=== PATIENT | male | born 1965 | race African-American/Black ===

== ENCOUNTER 2020-04-10 07:18 | Outpatient (REF) | payer MEDICARE, MEDICAID, SELFPAY | END 2020-04-10 07:19 | disposition home or self-care (01) | LOC: HO.MMNH2L 07:18 | PROVIDERS: Visit Provider Family Medicine | DX: Z20.828 Contact with and (suspected) exposure to other viral communicable diseases (principal) | CPT/HCPCS: 87635 ==

== ENCOUNTER 2020-04-17 18:57 | Outpatient (REF) | payer MEDICARE, MEDICAID, SELFPAY | END 2020-04-17 18:58 | disposition home or self-care (01) | LOC: HO.LNP 18:57 | PROVIDERS: Visit Provider Family Medicine | DX: Z20.828 Contact with and (suspected) exposure to other viral communicable diseases (principal) | CPT/HCPCS: 87635 ==

== ENCOUNTER 2020-04-23 06:41 | Outpatient (REF) | payer SELFPAY | END 2020-04-23 06:42 | disposition home or self-care (01) | LOC: HO.MMNH2L 06:41 | PROVIDERS: Visit Provider Family Medicine | DX: Z20.828 Contact with and (suspected) exposure to other viral communicable diseases (principal) | CPT/HCPCS: 87635 ==

== ENCOUNTER 2020-05-01 07:11 | Outpatient (REF) | payer SELFPAY | END 2020-05-01 07:12 | disposition home or self-care (01) | LOC: HO.MMNH2L 07:11 | PROVIDERS: Visit Provider Family Medicine | DX: Z20.828 Contact with and (suspected) exposure to other viral communicable diseases (principal) | CPT/HCPCS: U0003 ==

== ENCOUNTER 2020-05-04 | Outpatient (REF) | payer SELFPAY | END 2020-05-04 00:01 | LOC: HO.MMNH2L | PROVIDERS: Visit Provider Family Medicine | DX: Z20.828 Contact with and (suspected) exposure to other viral communicable diseases (principal) | CPT/HCPCS: U0003 ==

== ENCOUNTER 2020-06-29 06:43 | Outpatient (REF) | payer MEDICARE, MEDICAID, SELFPAY ==
[2020-06-29 07:07] LABS: Hematocrit 35.2 % (42-52); Hemoglobin 10.7 g/dl (14.0-18.0); Mean Corpuscular HGB Conc 30.4 g/dl (31.0-36.0); Mean Corpuscular Hemoglobin 30.2 pg (27.0-33.0); Mean Corpuscular Volume 99.4 fL (80-98); Mean Platelet Volume 9.4 fL (9.4-12.4); Platelet Count 269 X10*3/uL (160-400); Red Blood Count 3.54 X10*6/uL (4.60-5.80); Red Cell Distribution Width 15.3 % (11.0-16.0); White Blood Count 6.1 X10*3/uL (4.8-10.8)
[2020-06-29 07:39] LABS: Erythrocyte Sedimentation Rate 69 MM/HR (0-15)
[2020-06-29 07:54] LABS: Anion Gap 20 (12-20); Blood Urea Nitrogen 49 mg/dL (9-16); C Reactive Protein 1.86 mg/dL (< or = 0.50); Calcium 7.1 mg/dL (8.4-10.2); Carbon Dioxide 24 mmol/L (22-29); Chloride 99 mmol/L (96-108); Estimated Glomerular Filt Rate 8; Glucose Random 67 mg/dL (60-115); Sodium 137 mmol/L (135-145)
== END 2020-06-29 06:44 | disposition home or self-care (01) ==
LOC: HO.MMNH3L 06:43
PROVIDERS: Visit Provider Family Medicine
DX: I63.439 Cerebral infarction due to embolism of unspecified posterior cerebral artery (principal); E11.8 Type 2 diabetes mellitus with unspecified complications
CPT/HCPCS: 36415; 80048; 85027; 85652; 86140

== ENCOUNTER 2020-07-06 | Outpatient (REF) | payer MEDICARE, MEDICAID, SELFPAY ==
[2020-07-06 07:57] LABS: Hemoglobin 11.2 g/dl (14.0-18.0); Mean Corpuscular HGB Conc 30.3 g/dl (31.0-36.0); Mean Corpuscular Hemoglobin 29.3 pg (27.0-33.0); Mean Corpuscular Volume 96.9 fL (80-98); Mean Platelet Volume 9.6 fL (9.4-12.4); Platelet Count 264 X10*3/uL (160-400); Red Blood Count 3.82 X10*6/uL (4.60-5.80); Red Cell Distribution Width 14.6 % (11.0-16.0); White Blood Count 5.7 X10*3/uL (4.8-10.8)
[2020-07-06 10:03] LABS: Anion Gap 20 (12-20); Blood Urea Nitrogen 57 mg/dL (9-16); Calcium 7.7 mg/dL (8.4-10.2); Carbon Dioxide 22 mmol/L (22-29); Chloride 98 mmol/L (96-108); Estimated Glomerular Filt Rate 7; Glucose Random 62 mg/dL (60-115); Potassium 5.5 mmol/l (3.3-5.1); Sodium 134 mmol/L (135-145)
== END 2020-07-06 00:01 ==
LOC: HO.MMNH3L
PROVIDERS: Visit Provider Family Medicine
DX: E11.8 Type 2 diabetes mellitus with unspecified complications (principal); I63.439 Cerebral infarction due to embolism of unspecified posterior cerebral artery; Z99.2 Dependence on renal dialysis
CPT/HCPCS: 36415; 80048; 85027

== ENCOUNTER 2020-07-13 | Outpatient (REF) | payer MEDICARE, MEDICAID, SELFPAY ==
[2020-07-13 07:43] LABS: Hematocrit 37.1 % (42-52); Hemoglobin 11.6 g/dl (14.0-18.0); Mean Corpuscular HGB Conc 31.3 g/dl (31.0-36.0); Mean Corpuscular Hemoglobin 29.9 pg (27.0-33.0); Mean Corpuscular Volume 95.6 fL (80-98); Mean Platelet Volume 9.6 fL (9.4-12.4); Platelet Count 260 X10*3/uL (160-400); Red Blood Count 3.88 X10*6/uL (4.60-5.80); Red Cell Distribution Width 14.6 % (11.0-16.0); White Blood Count 6.1 X10*3/uL (4.8-10.8)
[2020-07-13 08:29] LABS: Anion Gap 21 (12-20); Blood Urea Nitrogen 60 mg/dL (9-16); C Reactive Protein 0.48 mg/dL (< or = 0.50); Calcium 7.7 mg/dL (8.4-10.2); Carbon Dioxide 19 mmol/L (22-29); Chloride 99 mmol/L (96-108); Estimated Glomerular Filt Rate 8; Glucose Random 66 mg/dL (60-115); Potassium 5.1 mmol/l (3.3-5.1); Sodium 134 mmol/L (135-145)
[2020-07-13 09:12] LABS: Erythrocyte Sedimentation Rate 38 MM/HR (0-15)
== END 2020-07-13 00:01 ==
LOC: HO.MMNH3L
PROVIDERS: Visit Provider Family Medicine
DX: E11.8 Type 2 diabetes mellitus with unspecified complications (principal); I63.439 Cerebral infarction due to embolism of unspecified posterior cerebral artery; Z99.2 Dependence on renal dialysis
CPT/HCPCS: 36415; 80048; 85027; 85652; 86140

== ENCOUNTER 2020-07-13 22:00 | Outpatient (REF) | payer MEDICARE, MEDICAID, SELFPAY ==
[2020-07-14 07:51] LABS: Glucose Urine UA 100 MG/DL (NEG); Leukocyte Esterase Urine NEG (NEG); Nitrite Urine NEG (NEG); Urine Blood TRACE (NEG); Urine Ketones NEG (NEG); Urine Protein 1+ MG/DL (NEG-TRACE)
[2020-07-14 07:53] LABS: Appearance Urine CLEAR; Color Urine YELLOW
[2020-07-14 08:11] LABS: RBC Urine 0-2 /HPF (0); WBC Urine 0 /HPF (0-4)
== END 2020-07-13 22:01 | disposition home or self-care (01) ==
LOC: HO.MMNH3L 22:00
PROVIDERS: Visit Provider Family Medicine
DX: R30.0 Dysuria (principal); N18.6 End stage renal disease
CPT/HCPCS: 81001; 87086

== ENCOUNTER 2020-07-20 | Outpatient (REF) | payer MEDICARE, MEDICAID, SELFPAY ==
[2020-07-20 07:44] LABS: Hematocrit 32.5 % (42-52); Hemoglobin 10.3 g/dl (14.0-18.0); Mean Corpuscular HGB Conc 31.7 g/dl (31.0-36.0); Mean Corpuscular Hemoglobin 30.1 pg (27.0-33.0); Mean Platelet Volume 9.5 fL (9.4-12.4); Platelet Count 242 X10*3/uL (160-400); Red Blood Count 3.42 X10*6/uL (4.60-5.80); Red Cell Distribution Width 14.9 % (11.0-16.0); White Blood Count 7.1 X10*3/uL (4.8-10.8)
[2020-07-20 07:54] LABS: C Reactive Protein 3.31 mg/dL (< or = 0.50)
[2020-07-20 08:32] LABS: Anion Gap 21 (12-20); Blood Urea Nitrogen 66 mg/dL (9-16); Calcium 7.7 mg/dL (8.4-10.2); Carbon Dioxide 21 mmol/L (22-29); Chloride 95 mmol/L (96-108); Estimated Glomerular Filt Rate 7; Glucose Random 89 mg/dL (60-115); Sodium 132 mmol/L (135-145)
[2020-07-20 09:11] LABS: Erythrocyte Sedimentation Rate 65 MM/HR (0-15)
== END 2020-07-20 00:01 | disposition home or self-care (01) ==
LOC: HO.MMNH3L
PROVIDERS: Visit Provider Family Medicine
DX: E11.8 Type 2 diabetes mellitus with unspecified complications (principal); I63.439 Cerebral infarction due to embolism of unspecified posterior cerebral artery; Z99.2 Dependence on renal dialysis
CPT/HCPCS: 36415; 80048; 85027; 85652; 86140

== ENCOUNTER 2020-07-27 | Outpatient (REF) | payer MEDICARE, MEDICAID, SELFPAY ==
[2020-07-27 07:30] LABS: Hematocrit 29.9 % (42-52); Hemoglobin 9.4 g/dl (14.0-18.0); Mean Corpuscular HGB Conc 31.4 g/dl (31.0-36.0); Mean Corpuscular Hemoglobin 30.3 pg (27.0-33.0); Mean Corpuscular Volume 96.5 fL (80-98); Mean Platelet Volume 9.4 fL (9.4-12.4); Platelet Count 204 X10*3/uL (160-400); Red Cell Distribution Width 14.6 % (11.0-16.0); White Blood Count 7.2 X10*3/uL (4.8-10.8)
[2020-07-27 08:40] LABS: Erythrocyte Sedimentation Rate 50 MM/HR (0-15)
[2020-07-27 09:26] LABS: Alanine Aminotransferase 18 U/L (0-40); Alkaline Phosphatase 115 U/L (39-117); Anion Gap 20 (12-20); Aspartate Amino Transferase 32 U/L (5-37); Bilirubin Total 0.3 mg/dL (0.0-1.0); Blood Urea Nitrogen 50 mg/dL (9-16); C Reactive Protein 2.34 mg/dL (< or = 0.50); Carbon Dioxide 22 mmol/L (22-29); Chloride 100 mmol/L (96-108); Estimated Glomerular Filt Rate 9; Glucose Random 70 mg/dL (60-115); Potassium 5.5 mmol/l (3.3-5.1); Sodium 136 mmol/L (135-145); Total Protein 6.2 g/dL (6.5-8.0)
== END 2020-07-27 00:01 | disposition home or self-care (01) ==
LOC: HO.MMNH3L
PROVIDERS: Visit Provider Family Medicine
DX: E11.8 Type 2 diabetes mellitus with unspecified complications (principal); I63.439 Cerebral infarction due to embolism of unspecified posterior cerebral artery; Z99.2 Dependence on renal dialysis
CPT/HCPCS: 36415; 80053; 85027; 85652; 86140

== ENCOUNTER 2020-08-03 13:05 | Outpatient (REF) | payer MEDICARE, MEDICAID, SELFPAY ==
[2020-08-03 07:54] LABS: Hematocrit 28.8 % (42-52); Mean Corpuscular HGB Conc 31.3 g/dl (31.0-36.0); Mean Corpuscular Hemoglobin 29.9 pg (27.0-33.0); Mean Corpuscular Volume 95.7 fL (80-98); Mean Platelet Volume 9.4 fL (9.4-12.4); Platelet Count 205 X10*3/uL (160-400); Red Blood Count 3.01 X10*6/uL (4.60-5.80); Red Cell Distribution Width 14.3 % (11.0-16.0); White Blood Count 7.1 X10*3/uL (4.8-10.8)
[2020-08-03 08:24] LABS: Anion Gap 14 (12-20); Blood Urea Nitrogen 40 mg/dL (9-16); C Reactive Protein 2.06 mg/dL (< or = 0.50); Calcium 7.7 mg/dL (8.4-10.2); Carbon Dioxide 26 mmol/L (22-29); Chloride 101 mmol/L (96-108); Glucose Random 60 mg/dL (60-115); Potassium 4.8 mmol/L (3.3-5.1); Sodium 136 mmol/L (135-145)
[2020-08-03 09:06] LABS: Erythrocyte Sedimentation Rate 50 MM/HR (0-15)
[2020-08-03 09:39] LABS: Estimated Glomerular Filt Rate 8
== END 2020-08-03 13:06 | disposition home or self-care (01) ==
LOC: HO.MMNH3L 13:05
PROVIDERS: Visit Provider Family Medicine
DX: E11.8 Type 2 diabetes mellitus with unspecified complications (principal); I63.439 Cerebral infarction due to embolism of unspecified posterior cerebral artery; Z99.2 Dependence on renal dialysis
CPT/HCPCS: 36415; 80048; 85027; 85652; 86140

== ENCOUNTER 2020-08-10 10:41 | Outpatient (REF) | payer MEDICARE, MEDICAID, SELFPAY ==
[2020-08-10 07:56] LABS: Hematocrit 29.5 % (42-52); Mean Corpuscular HGB Conc 30.5 g/dl (31.0-36.0); Mean Corpuscular Hemoglobin 29.9 pg (27.0-33.0); Mean Platelet Volume 9.7 fL (9.4-12.4); Platelet Count 222 X10*3/uL (160-400); Red Blood Count 3.01 X10*6/uL (4.60-5.80); Red Cell Distribution Width 14.6 % (11.0-16.0); White Blood Count 5.3 X10*3/uL (4.8-10.8)
[2020-08-10 08:39] LABS: Anion Gap 16 (12-20); C Reactive Protein 1.77 mg/dL (< or = 0.50); Calcium 8.2 mg/dL (8.4-10.2); Carbon Dioxide 27 mmol/L (22-29); Chloride 101 mmol/L (96-108); Glucose Random 89 mg/dL (60-115); Potassium 4.6 mmol/L (3.3-5.1); Sodium 139 mmol/L (135-145)
[2020-08-10 08:41] LABS: Blood Urea Nitrogen 55 mg/dL (9-16); Estimated Glomerular Filt Rate 7
[2020-08-10 09:37] LABS: Erythrocyte Sedimentation Rate 60 MM/HR (0-15)
== END 2020-08-10 10:42 | disposition home or self-care (01) ==
LOC: HO.MMNH3L 10:41
PROVIDERS: Visit Provider Family Medicine
DX: E11.8 Type 2 diabetes mellitus with unspecified complications (principal); Z99.2 Dependence on renal dialysis; I63.439 Cerebral infarction due to embolism of unspecified posterior cerebral artery
CPT/HCPCS: 36415; 80048; 85027; 85652; 86140

== ENCOUNTER 2020-08-17 10:30 | Outpatient (REF) | payer MEDICARE, MEDICAID, SELFPAY ==
[2020-08-17 06:39] LABS: MANUAL DIFF FLAG NO
[2020-08-17 07:06] LABS: Basophils Percent Auto 0.4 % (0-2); Eosinophils Absolute Auto 0.2 X10*3/uL (0.0-0.4); Eosinophils Percent Auto 3.5 % (0-4); Hematocrit 33.2 % (42-52); Hemoglobin 10.3 g/dl (14.0-18.0); Imm Gran Abs Auto 0.02 X10*3/uL (0.00-0.03); Imm Gran Pct Auto 0.4 % (0.0-0.4); Lymphocytes Absolute Auto 1.5 X10*3/uL (1.2-4.9); Lymphocytes Percent Auto 28.6 % (20-40); Mean Corpuscular Hemoglobin 30.5 pg (27.0-33.0); Mean Corpuscular Volume 98.2 fL (80-98); Mean Platelet Volume 9.7 fL (9.4-12.4); Monocytes Absolute Auto 0.5 X10*3/uL (0.1-1.2); Monocytes Percent Auto 8.3 % (2-11); Neutrophils Absolute Auto 3.2 X10*3/uL (2.0-8.3); Neutrophils Percent Auto 58.8 % (45-73); Platelet Count 206 X10*3/uL (160-400); Red Blood Count 3.38 X10*6/uL (4.60-5.80); Red Cell Distribution Width 15.1 % (11.0-16.0); White Blood Count 5.4 X10*3/uL (4.8-10.8)
[2020-08-17 07:30] LABS: Blood Urea Nitrogen 45 mg/dL (9-16); Calcium 8.3 mg/dL (8.4-10.2)
[2020-08-17 07:48] LABS: Anion Gap 20 (12-20); Carbon Dioxide 21 mmol/L (22-29); Chloride 100 mmol/L (96-108); Potassium 5.2 mmol/L (3.3-5.1); Sodium 136 mmol/L (135-145)
[2020-08-17 08:03] LABS: Estimated Glomerular Filt Rate 8; Glucose Random 57 mg/dL (60-115)
[2020-08-17 08:16] LABS: Erythrocyte Sedimentation Rate 72 MM/HR (0-15)
== END 2020-08-17 10:31 | disposition home or self-care (01) ==
LOC: HO.MMNH3L 10:30
PROVIDERS: Visit Provider Family Medicine
DX: E11.8 Type 2 diabetes mellitus with unspecified complications (principal); I63.439 Cerebral infarction due to embolism of unspecified posterior cerebral artery; Z99.2 Dependence on renal dialysis
CPT/HCPCS: 36415; 80048; 85025; 85652; 86140

== ENCOUNTER 2020-08-24 10:38 | Outpatient (REF) | payer MEDICARE, MEDICAID, SELFPAY ==
[2020-08-24 07:31] LABS: Hematocrit 30.7 % (42-52); Hemoglobin 9.5 g/dl (14.0-18.0); Mean Corpuscular HGB Conc 30.9 g/dl (31.0-36.0); Mean Corpuscular Hemoglobin 30.4 pg (27.0-33.0); Mean Corpuscular Volume 98.4 fL (80-98); Mean Platelet Volume 9.4 fL (9.4-12.4); Platelet Count 216 X10*3/uL (160-400); Red Blood Count 3.12 X10*6/uL (4.60-5.80); White Blood Count 6.5 X10*3/uL (4.8-10.8)
[2020-08-24 08:10] LABS: Anion Gap 19 (12-20); Carbon Dioxide 21 mmol/L (22-29); Chloride 104 mmol/L (96-108); Glucose Random 72 mg/dL (60-115); Potassium 4.8 mmol/L (3.3-5.1); Sodium 139 mmol/L (135-145)
[2020-08-24 08:11] LABS: C Reactive Protein 0.98 mg/dL (< or = 0.50); Calcium 7.9 mg/dL (8.4-10.2)
[2020-08-24 08:28] LABS: Erythrocyte Sedimentation Rate 43 MM/HR (0-15)
[2020-08-24 08:53] LABS: Blood Urea Nitrogen 47 mg/dL (9-16); Estimated Glomerular Filt Rate 7
== END 2020-08-24 10:39 | disposition home or self-care (01) ==
LOC: HO.MMNH3L 10:38
PROVIDERS: Visit Provider Family Medicine
DX: E11.9 Type 2 diabetes mellitus without complications (principal); I63.439 Cerebral infarction due to embolism of unspecified posterior cerebral artery; Z99.2 Dependence on renal dialysis
CPT/HCPCS: 36415; 80048; 85027; 85652; 86140

== ENCOUNTER 2020-08-31 09:50 | Outpatient (REF) | payer MEDICARE, MEDICAID, SELFPAY ==
[2020-08-31 08:36] LABS: Hemoglobin 10.3 g/dl (14.0-18.0); Mean Corpuscular HGB Conc 31.2 g/dl (31.0-36.0); Mean Corpuscular Hemoglobin 31.1 pg (27.0-33.0); Mean Corpuscular Volume 99.7 fL (80-98); Mean Platelet Volume 9.6 fL (9.4-12.4); NRBC Pct Auto 0.3 /100WBC (0.0-0.2); Platelet Count 267 X10*3/uL (160-400); Red Blood Count 3.31 X10*6/uL (4.60-5.80); Red Cell Distribution Width 15.1 % (11.0-16.0); White Blood Count 6.4 X10*3/uL (4.8-10.8)
[2020-08-31 10:04] LABS: Calcium 7.7 mg/dL (8.4-10.2); Chloride 101 mmol/L (96-108); Potassium 5.5 mmol/L (3.3-5.1); Sodium 137 mmol/L (135-145)
[2020-08-31 10:05] LABS: Anion Gap 21 (12-20); C Reactive Protein 0.79 mg/dL (< or = 0.50); Carbon Dioxide 21 mmol/L (22-29); Glucose Random 64 mg/dL (60-115)
[2020-08-31 10:23] LABS: Blood Urea Nitrogen 52 mg/dL (9-16); Estimated Glomerular Filt Rate 7
[2020-08-31 11:40] LABS: Erythrocyte Sedimentation Rate 62 MM/HR (0-15)
== END 2020-08-31 09:51 | disposition home or self-care (01) ==
LOC: HO.MMNH3L 09:50
PROVIDERS: Visit Provider Family Medicine
DX: E11.8 Type 2 diabetes mellitus with unspecified complications (principal); I63.439 Cerebral infarction due to embolism of unspecified posterior cerebral artery; Z99.2 Dependence on renal dialysis
CPT/HCPCS: 36415; 80048; 85027; 85652; 86140

== ENCOUNTER 2020-09-03 07:44 | Outpatient (REF) | payer MEDICARE, MEDICAID, SELFPAY ==
[2020-09-03 07:57] LABS: Glucose Urine UA 100 MG/DL (NEG); Leukocyte Esterase Urine NEG (NEG); Nitrite Urine NEG (NEG); Urine Blood TRACE (NEG); Urine Ketones NEG (NEG); Urine Protein 1+ MG/DL (NEG-TRACE)
[2020-09-03 07:58] LABS: Appearance Urine CLEAR; Color Urine STRAW
[2020-09-03 08:05] LABS: Squamous Epithelial Cell Urine TRACE /LPF; WBC Urine 0-2 /HPF (0-4)
== END 2020-09-03 07:45 | disposition home or self-care (01) ==
LOC: HO.MMNH3L 07:44
PROVIDERS: Visit Provider Family Medicine
DX: R30.0 Dysuria (principal)
CPT/HCPCS: 81001; 87086

== ENCOUNTER 2020-09-07 00:13 | Outpatient (REF) | payer MEDICARE, MEDICAID, SELFPAY ==
[2020-09-07 07:47] LABS: Hemoglobin 11.2 g/dl (14.0-18.0); Mean Corpuscular HGB Conc 31.1 g/dl (31.0-36.0); Mean Corpuscular Hemoglobin 31.2 pg (27.0-33.0); Mean Corpuscular Volume 100.3 fL (80-98); Mean Platelet Volume 9.7 fL (9.4-12.4); Platelet Count 205 X10*3/uL (160-400); Red Blood Count 3.59 X10*6/uL (4.60-5.80); Red Cell Distribution Width 15.9 % (11.0-16.0); White Blood Count 5.5 X10*3/uL (4.8-10.8)
[2020-09-07 08:02] LABS: Anion Gap 22 (12-20); Blood Urea Nitrogen 77 mg/dL (9-16); C Reactive Protein 0.67 mg/dL (< or = 0.50); Calcium 7.5 mg/dL (8.4-10.2); Carbon Dioxide 23 mmol/L (22-29); Chloride 98 mmol/L (96-108); Glucose Random 79 mg/dL (60-115); Sodium 137 mmol/L (135-145)
[2020-09-07 08:34] LABS: Estimated Glomerular Filt Rate 7
[2020-09-07 08:55] LABS: Erythrocyte Sedimentation Rate 75 MM/HR (0-15)
== END 2020-09-07 00:14 | disposition home or self-care (01) ==
LOC: HO.MMNH3L 00:13
PROVIDERS: Visit Provider Family Medicine
DX: E11.8 Type 2 diabetes mellitus with unspecified complications (principal); Z99.2 Dependence on renal dialysis; Z86.73 Personal history of transient ischemic attack (TIA), and cerebral infarction without residual deficits
CPT/HCPCS: 36415; 80048; 85027; 85652; 86140

== ENCOUNTER 2020-09-14 00:49 | Outpatient (REF) | payer MEDICARE, MEDICAID, SELFPAY | END 2020-09-14 00:50 | disposition home or self-care (01) | LOC: HO.MMNH3L 00:49 | PROVIDERS: Visit Provider Family Medicine | DX: Z13.89 Encounter for screening for other disorder (principal) ==